=== PATIENT | female | born 1975 | race African-American/Black ===

== ENCOUNTER → 2016-10-20 | Outpatient (CLI) | payer OTHER ==
[2016-10-20 11:56] LABS: ABSOLUTE EOSINOPHILS # (AUTO) 0.1 10^3/uL (0.0-0.6); ABSOLUTE LYMPHOCYTES (AUTO) 1.9 10^3/uL (0.5-4.7); ABSOLUTE MONOCYTES (AUTO) 0.4 10^3/uL (0.1-1.4); ABSOLUTE NEUT (AUTO) 2.2 10^3/uL (1.7-8.2); BASOPHILS % (AUTO) 0.4 % (0-2); EOSINOPHILS % (AUTO) 2.9 % (0-6); HEMATOCRIT 42.6 % (36.0-47.0); HEMOGLOBIN 14.7 g/dL (12.0-15.5); HGB HCT DIFFERENCE 1.5; LYMPHOCYTES % (AUTO) 40.3 % (13-45); MEAN CORPUSCULAR HEMOGLOBIN 29.8 pg (27.0-33.4); MEAN CORPUSCULAR HGB CONC 34.5 g/dL (32.0-36.0); MEAN CORPUSCULAR VOLUME 86 fl (80-97); MONOCYTES % (AUTO) 8.4 % (3-13); RED BLOOD COUNT 4.93 10^6/uL (3.72-5.28); RED CELL DISTRIBUTION WIDTH 13.4 % (11.5-14.0); WHITE BLOOD COUNT 4.7 10^3/uL (4.0-10.5)
[2016-10-20 12:25] LABS: ALANINE AMINOTRANSFERASE 20 U/L (9-52); ALBUMIN 3.6 g/dL (3.5-5.0); ALKALINE PHOSPHATASE 60 U/L (38-126); ANION GAP 11 (5-19); ASPARTATE AMINO TRANSFERASE 18 U/L (14-36); BILIRUBIN,DIRECT 0.3 mg/dL (0.0-0.4); BILIRUBIN,TOTAL 0.5 mg/dL (0.2-1.3); BLOOD UREA NITROGEN 10 mg/dL (7-20); C-REACTIVE PROTEIN 10.3 mg/L (<10.0); CALCIUM 9.3 mg/dL (8.4-10.2); CARBON DIOXIDE 22 mmol/L (22-30); CHLORIDE 108 mmol/L (98-107); GLUCOSE 75 mg/dL (75-110); POTASSIUM 4.6 mmol/L (3.6-5.0); SODIUM 140.9 mmol/L (137-145); TOTAL PROTEIN 7.2 g/dL (6.3-8.2)
== END ==
LOC: OD 10:53
PROVIDERS: ATTEND Physician Assistant
DX: M17.12 Unilateral primary osteoarthritis, left knee (principal); M25.50 Pain in unspecified joint; R60.9 Edema, unspecified
CPT/HCPCS: 36415; 80053; 84550; 85025; 85652; 86038; 86140; 86430

== ENCOUNTER 2018-06-22 09:35 | Emergency (ER) | payer OTHER ==
[2018-06-22] MEDS ORDERED: ACETAMINOPHEN 325 MG TABLET PO ONE (09:55)
--- NOTE | 2018-06-22 09:57 | ER Document Report ---
ED Medical Screen (RME) - General Chief Complaint: High Blood Pressure Stated Complaint: HEADACHE/NECK PAIN Time Seen by Provider: 06/22/18 09:49 Primary Care Provider: JOSE BRYANT MD [Primary Care Provider] - Follow up as needed Mode of Arrival: Ambulatory Information source: Patient TRAVEL OUTSIDE OF THE [place] IN LAST 30 DAYS: No - HPI Patient complains to provider of: HEADACHE, HTN Notes: 06/22/18 09:55 Patient is here with complaints of elevated blood pressure and headache. Patient states that she went to urgent care for a foot problem and was noted that she had an elevated blood pressure at that time. She made appoint with her primary care doctor which is scheduled for Monday. She does not have a history of hypertension and has not been on antihypertensives in the past. She states that since Monday she has had a bad headache behind her right eye. The headache seems to be getting worse. She has occasional blurred vision in the eye. She denies any unilateral numbness, tingling, weakness. No chest pain or shortness of breath. No nausea, vomiting, diarrhea. No head injury. No blood thinners. She takes control pills, no other medications. Exam Patient appears uncomfortable, no distress, nontoxic. Nonfocal neurological exam. Mild tachycardia. Lung sounds normal. Plan CBC, CMP, urinalysis, EKG, chest x-ray, head CT, Tylenol. An initial examination was made on the patient as part of the triage process, and it was determined a more comprehensive evaluation was necessary. Initial labs were ordered and patient was transferred to another provider in the ED who assumed care and finished evaluation and plan. - Related Data Allergies/Adverse Reactions: No Known Allergies Allergy (Verified 06/04/14 11:42) Past Medical History - Social History Frequency of alcohol use: None Drug Abuse: None - Past Medical History Cardiac Medical History: Pulmonary Medical History: Neurological Medical History: Renal/ Medical History: Reports: Hx Ovarian Cysts. Denies: Hx Peritoneal Dialysis, Hx Pelvic Inflammatory Disease Malignancy Medical History: Denies: Hx Breast Cancer, Hx Cervical Cancer, Hx Ovarian Cancer GI Medical History: Musculoskeltal Medical History: Infectious Medical History: Denies: Hx HIV Past Surgical History: Reports: Hx Section - x3, Hx Orthopedic Surgery - right knee - Immunizations Hx Diphtheria, Pertussis, Tetanus Vaccination: Yes - 06/09/14 Physical Exam - Vital signs Vitals: Temp Pulse Resp BP Pulse Ox 98.7 F 119 H 18 182/100 H 99 06/22/18 09:46 06/22/18 09:46 06/22/18 09:46 06/22/18 09:46 06/22/18 09:46 Course - Vital Signs Vital signs: Temp Pulse Resp BP Pulse Ox 98.7 F 119 H 18 182/100 H 99 06/22/18 09:46 06/22/18 09:46 06/22/18 09:46 06/22/18 09:46 06/22/18 09:46 Doctor's Discharge - Discharge Referrals: JOSE BRYANT MD [Primary Care Provider] - Follow up as needed
--- NOTE | 2018-06-22 10:44 | RADIOLOGY REPORT (SQ) ---
EXAM DESCRIPTION: CT HEAD WITHOUT COMPLETED DATE/TIME: 06/22/2018 10:29 am REASON FOR STUDY: HEADACHE, HTN COMPARISON: None. TECHNIQUE: Axial images acquired through the brain without intravenous contrast. Images reviewed wi th bone, brain and subdural windows. Additional sagittal and coronal reconstructions were generated. Images stored on PACS. All CT scanners at this facility use dose modulation, iterative reconstruction, and/or weight based d osing when appropriate to reduce radiation dose to as low as reasonably achievable (ALARA). [facility]: Dose Right [facility]: CareDose [facility]: Dose Right [facility]: Teradose 4D [facility]: Smart [employer] RADIATION DOSE: CT Rad equipment meets quality standard of care and radiation dose reduction techniq ues were employed. CTDIvol: 53.2 mGy. DLP: 1097 mGy-cm. mGy. LIMITATIONS: None. FINDINGS: VENTRICLES: Normal size and contour. CEREBRUM: No masses. No hemorrhage. No midline shift. No evidence for acute infarction. Normal gra y/white matter differentiation. No areas of low density in the white matter. CEREBELLUM: No masses. No hemorrhage. No alteration of density. No evidence for acute infarction. EXTRAAXIAL SPACES: No fluid collections. No masses. ORBITS AND GLOBE: No intra- or extraconal masses. Normal contour of globe without masses. CALVARIUM: No fracture. PARANASAL SINUSES: There is opacification of several of the ethmoid air cells on the right more than left. Mucoperiosteal changes are present in the right frontal sinus. SOFT TISSUES: No mass or hematoma. OTHER: No other significant finding. IMPRESSION: Sinus disease. No acute intracranial imaging finding. EVIDENCE OF ACUTE STROKE: NO. COMMENT: Quality ID # [id number]: Final reports with documentation of one or more dose reduction techniques (e.g., Automated exposure control, adjustment of the mA and/or kV according to patient size, use of iterative reconstruction technique) TECHNICAL DOCUMENTATION: JOB ID: [id number] [employer]- All Rights Reserved Reading location - IP/workstation name: [email or web address]
--- NOTE | 2018-06-22 10:56 | RADIOLOGY REPORT (SQ) ---
EXAM DESCRIPTION: CHEST SINGLE VIEW COMPLETED DATE/TIME: 06/22/2018 10:47 am REASON FOR STUDY: HEADACHE, HTN COMPARISON: None. EXAM PARAMETERS: NUMBER OF VIEWS: One view. TECHNIQUE: Single frontal radiographic view of the chest acquired. RADIATION DOSE: NA LIMITATIONS: None. FINDINGS: LUNGS AND PLEURA: No opacities, masses or pneumothorax. No pleural effusion. MEDIASTINUM AND HILAR STRUCTURES: No masses. Contour normal. HEART AND VASCULAR STRUCTURES: Heart normal in size. Normal vasculature. BONES: No acute findings. HARDWARE: None in the chest. OTHER: No other significant finding. IMPRESSION: No acute abnormality of the lungs in frontal projection. TECHNICAL DOCUMENTATION: JOB ID: [id number] [employer]- All Rights Reserved Reading location - IP/workstation name: [email or web address]
[2018-06-22 11:08] LABS: ABSOLUTE EOSINOPHILS # (AUTO) 0.1 10^3/uL (0.0-0.6); ABSOLUTE LYMPHOCYTES (AUTO) 1.8 10^3/uL (0.5-4.7); ABSOLUTE MONOCYTES (AUTO) 0.5 10^3/uL (0.1-1.4); ABSOLUTE NEUT (AUTO) 3.5 10^3/uL (1.7-8.2); BASOPHILS % (AUTO) 0.3 % (0-2); EOSINOPHILS % (AUTO) 1.2 % (0-6); HEMATOCRIT 45.5 % (36.0-47.0); HEMOGLOBIN 15.3 g/dL (12.0-15.5); LYMPHOCYTES % (AUTO) 30.1 % (13-45); MEAN CORPUSCULAR HEMOGLOBIN 28.9 pg (27.0-33.4); MEAN CORPUSCULAR HGB CONC 33.7 g/dL (32.0-36.0); MEAN CORPUSCULAR VOLUME 86 fl (80-97); MONOCYTES % (AUTO) 8.9 % (3-13); PLATELET COUNT 305 10^3/uL (150-450); SEGMENTED NEUTROPHILS % (AUTO) 59.5 % (42-78); TOTAL CELLS COUNTED % (AUTO) 100 %; WHITE BLOOD COUNT 5.8 10^3/uL (4.0-10.5)
[2018-06-22 11:23] LABS: ALANINE AMINOTRANSFERASE 28 U/L (9-52); ALBUMIN 3.8 g/dL (3.5-5.0); ALKALINE PHOSPHATASE 60 U/L (38-126); ANION GAP 9 (5-19); ASPARTATE AMINO TRANSFERASE 23 U/L (14-36); BILIRUBIN,DIRECT 0.2 mg/dL (0.0-0.4); BILIRUBIN,TOTAL 0.5 mg/dL (0.2-1.3); BLOOD UREA NITROGEN 8 mg/dL (7-20); CALCIUM 9.3 mg/dL (8.4-10.2); CARBON DIOXIDE 23 mmol/L (22-30); CHLORIDE 108 mmol/L (98-107); GLUCOSE 91 mg/dL (75-110); POTASSIUM 4.1 mmol/L (3.6-5.0); SODIUM 140.1 mmol/L (137-145); TOTAL PROTEIN 7.4 g/dL (6.3-8.2)
[2018-06-22] MEDS ORDERED: METOCLOPRAMIDE HCL INJ/PF 10 MG/2 ML SDV IV ONE (11:38)
[2018-06-22] MEDS ORDERED: KETOROLAC TROMETHAMINE INJ/PF 30 MG/1 ML SDV IV ONE (11:38)
[2018-06-22] MEDS ORDERED: DIPHENHYDRAMINE HCL 50 MG/ML VIAL IV ONE (11:39)
[2018-06-22 11:45] LABS: APPEARANCE,URINE SLIGHTLY-CLOUDY; BILIRUBIN,URINE NEGATIVE (NEGATIVE); COLOR,URINE YELLOW; GLUCOSE, URINE NEGATIVE (NEGATIVE); KETONES,URINE NEGATIVE (NEGATIVE); LEUKOCYTE ESTERASE,URINE TRACE (NEGATIVE); NITRITE,URINE NEGATIVE (NEGATIVE); PROTEIN,URINE NEGATIVE (NEGATIVE); URINE SPECIFIC GRAVITY 1.013; UROBILINOGEN,URINE NEGATIVE mg/dL (<2.0)
--- NOTE | 2018-06-22 11:45 | ER Document Report ---
ED General - General Chief Complaint: High Blood Pressure Stated Complaint: HEADACHE/NECK PAIN Time Seen by Provider: 06/22/18 09:49 Primary Care Provider: JOSE BRYANT MD [ASSOCIATE] - Follow up as needed Mode of Arrival: Ambulatory Notes: 43-year-old female here with complaints of elevated blood pressure and headache. Patient states that she went to urgent care for a foot problem and was noted that she had an elevated blood pressure at that time. She made appoint with her primary care doctor which is scheduled for Monday. She does not have a history of hypertension and has not been on antihypertensives in the past. She states that since Monday she has had a bad headache behind her right eye. The headache seems to be getting worse. She has occasional blurred vision in the eye. She denies any unilateral numbness, tingling, weakness. No chest pain or shortness of breath. No nausea, vomiting, diarrhea. No head injury. No blood thinners. She takes control pills, no other medications. TRAVEL OUTSIDE OF THE [place] IN LAST 30 DAYS: No - Related Data Allergies/Adverse Reactions: No Known Allergies Allergy (Verified 06/04/14 11:42) Past Medical History - General Information source: Patient - Social History Smoking Status: Never Smoker Frequency of alcohol use: None Drug Abuse: None Family History: None Patient has suicidal ideation: No Patient has homicidal ideation: No - Past Medical History Cardiac Medical History: Pulmonary Medical History: Neurological Medical History: Renal/ Medical History: Reports: Hx Ovarian Cysts. Denies: Hx Peritoneal Dialysis, Hx Pelvic Inflammatory Disease Malignancy Medical History: Denies: Hx Breast Cancer, Hx Cervical Cancer, Hx Ovarian Cancer GI Medical History: Musculoskeletal Medical History: Infectious Medical History: Denies: Hx HIV Past Surgical History: Reports: Hx Section - x3, Hx Orthopedic Surgery - right knee - Immunizations Hx Diphtheria, Pertussis, Tetanus Vaccination: Yes - 06/09/14 Review of Systems - Review of Systems Constitutional: See HPI EENT: See HPI Cardiovascular: See HPI Respiratory: See HPI Gastrointestinal: See HPI Genitourinary: See HPI Female Genitourinary: No symptoms reported Musculoskeletal: No symptoms reported Skin: No symptoms reported Hematologic/Lymphatic: No symptoms reported Neurological/Psychological: No symptoms reported Physical Exam - Vital signs Vitals: Temp Pulse Resp BP Pulse Ox 98.7 F 119 H 18 182/100 H 99 06/22/18 09:46 06/22/18 09:46 06/22/18 09:46 06/22/18 09:46 06/22/18 09:46 - Notes Notes: PHYSICAL EXAMINATION: Reviewed vital signs and charting by RN GENERAL: Alert, interacts well. No acute distress. HEAD: Normocephalic, atraumatic. EYES: Pupils equal and round. Extraocular movements intact. ENT: Oral mucosa moist, tongue midline. NECK: Full range of motion. Supple. Trachea midline. LUNGS: Clear to auscultation bilaterally, no wheezes, rales, or rhonchi. No respiratory distress. HEART: Regular rate and rhythm. No murmur ABDOMEN: soft, non-tender. Non-distended. Bowel sounds present. no McBurney's point tenderness, no Sidhu sign. EXTREMITIES: Moves all 4 extremities spontaneously. No edema, No cyanosis. Normal distal neurovascular exam BACK: No CVAT NEUROLOGIC: Oriented and appropriate. Normal speech. No focal neuro deficits. PSYCH: Normal affect, normal mood. SKIN: Warm, dry, normal turgor. No rashes or lesions noted. Course - Re-evaluation Re-evalutation: 06/22/18 11:41 Overall well-appearing. Patient with complaint of severe headache. CT head complete and no evidence of ischemia or intracranial bleed. Patient's neck pain is upper trapezius. Patient denies acute shortness of breath, is not tachycardic. I believe she is low risk for pulmonary embolism based on Wells criteria for PE. Blood work all unremarkable, although patient's creatinine is 1.18. Patient will be given a migraine cocktail. 06/22/18 13:38 Patient reports feeling much better after the migraine cocktail. Her headache is rated as mild to moderate. Her blood pressure came down is now 139/85. Patient initially open her eyes and said she felt a "pulling" but her eyes quickly adjusted to light and she is no longer photophobic. Discussed with patient the need to follow-up with her primary care provider. She agreed strict return precautions given. 06/22/18 13:41 - Vital Signs Vital signs: Temp Pulse Resp BP Pulse Ox 98.7 F 119 H 26 H 139/85 H 97 06/22/18 09:46 06/22/18 09:46 06/22/18 13:01 06/22/18 13:01 06/22/18 13:01 - Laboratory Result Diagrams: 06/22/18 10:53 06/22/18 10:53 Laboratory results interpreted by me: 06/22/18 06/22/18 06/22/18 10:53 10:53 11:10 RBC 5.30 H Chloride 108 H Est GFR (Non-Af Amer) 50 L Urine Blood LARGE H Ur Leukocyte Esterase TRACE H Discharge - Discharge Clinical Impression: Headache Qualifiers: Headache type: unspecified Headache chronicity pattern: acute headache Intractability: not intractable Qualified Code(s): R51 - Headache High blood pressure Qualifiers: Hypertension type: unspecified Qualified Code(s): I10 - Essential (primary) hypertension Disposition: HOME, SELF-CARE Additional Instructions: You have been seen in the Emergency Department (ED) for a headache. Please use Tylenol (acetaminophen) or Motrin (ibuprofen) as needed for symptoms, but only as written on the box. Also, you can take the Reglan, Benadryl, and Motrin combo that we talked about if you start developing headaches like this again. Also, you can take Afrin for up to 3 days to help with the sinus pressure and/or Sudafed. As we have discussed, please follow up with your primary care doctor as soon as possible regarding today's ED visit and your headache symptoms. Call your doctor or return to the ED if you have a worsening headache, sudden and severe headache, confusion, slurred speech, facial droop, weakness or numbness in any arm or leg, extreme fatigue, or other symptoms that concern you. Prescriptions: Metoclopramide HCl [Reglan 10 mg Tablet] 1 tab PO Q6H PRN #25 tablet PRN Reason: Referrals: JOSE BRYANT MD [ASSOCIATE] - Follow up as needed
[2018-06-22 13:59] VITALS: BP 139/85
--- NOTE | 2018-06-22 18:51 | EKG REPORT ---
SEVERITY:- BORDERLINE ECG - SINUS RHYTHM BORDERLINE T ABNORMALITIES, INFERIOR LEADS : Confirmed by: Ganesh Lai 22-Jun-2018 18:50:49
== END 2018-06-22 13:59 | disposition home or self-care (01) ==
LOC: ER 09:35
DX: R51 Headache (principal); I10 Essential (primary) hypertension; M54.2 Cervicalgia
CPT/HCPCS: 93005; 99284; 96374; 96375; 36415; 85025; 80053; 81001; 71045; 70450; 93010; J1200; J1885; J2765

== ENCOUNTER 2018-10-17 06:54 | Day surgery (SDC) | payer OTHER ==
[~2018-10-17 06:54] MED LIST: CEFAZOLIN 1 GM/D5W RTU 1 GM/50 ML RTUPB IV ONE; DIPHENHYDRAMINE HCL 50 MG/ML VIAL ONE; FENTANYL CITRATE INJ/PF 100 MCG/2 ML AMPUL ONE; KETOROLAC TROMETHAMINE 60 MG/2 ML SDV ONE; LIDOCAINE 2% INJ-PF (20 MG/ML) 10 ML AMPUL ONE; MIDAZOLAM 2 MG/2 ML INJ ONE; PROPOFOL INJ 200 MG/20 ML VIAL IV ONE
[2018-10-17] MEDS ORDERED: POLYMYXIN B SULFATE INJ 500000 UNIT VIAL ONE (07:36)
[2018-10-17] MEDS ORDERED: BUPIVACAINE HCL 0.5 % INJ/PF 30 ML SDV ONE (07:37)
[2018-10-17] MEDS ORDERED: NORMAL SALINE INJ/PF 0.9% 10 ML SDV ONE (07:37)
[2018-10-17] MEDS ORDERED: LIDOCAINE 2% INJ (20 MG/ML) 20 ML MDV ONE (07:37)
[2018-10-17] MEDS ORDERED: BACITRACIN INJ 50,000 UNIT VIAL ONE (07:37)
[2018-10-17] MEDS ORDERED: DEXAMETHASONE SOD PHOS INJ 10 MG/1 ML VIAL ONE (08:39)
[2018-10-17] MEDS: DEXAMETHASONE SOD PHOSPHATE INJ 4 MG/1 ML VIAL ONE ×2 (08:57)
--- NOTE | 2018-10-17 09:17 | RADIOLOGY REPORT (SQ) ---
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 FLUOROSCOPY TIME: 0.05 seconds Spot images saved to PACS. TECHNIQUE: Intra-operative images acquired during surgical procedure to evaluate progress. NUMBER OF IMAGES: 4 LIMITATIONS: None. FINDINGS: Fluoroscopy was provided for intraoperative procedure. Please refer to the operative repo rt further discussion. IMPRESSION: IMAGE(S) OBTAINED DURING PROCEDURE. COMMENT: Quality ID [id number]: Final reports for procedures using fluoroscopy that document radiation exp osure indices, or exposure time and number of fluorographic images (if radiation exposure indices are not available) Please consult full operative report of the attending physician for description of the procedure. TECHNICAL DOCUMENTATION: JOB ID: [id number] [employer]- All Rights Reserved Reading location - IP/workstation name: [email or web address]
--- NOTE | 2018-10-17 09:17 | RADIOLOGY REPORT (SQ) ---
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 FLUOROSCOPY TIME: 0.05 seconds Spot images saved to PACS. TECHNIQUE: Intra-operative images acquired during surgical procedure to evaluate progress. NUMBER OF IMAGES: 4 LIMITATIONS: None. FINDINGS: Fluoroscopy was provided for intraoperative procedure. Please refer to the operative repo rt further discussion. IMPRESSION: IMAGE(S) OBTAINED DURING PROCEDURE. COMMENT: Quality ID [id number]: Final reports for procedures using fluoroscopy that document radiation exp osure indices, or exposure time and number of fluorographic images (if radiation exposure indices are not available) Please consult full operative report of the attending physician for description of the procedure. TECHNICAL DOCUMENTATION: JOB ID: [id number] [employer]- All Rights Reserved Reading location - IP/workstation name: [email or web address]
--- NOTE | 2018-10-17 09:22 | Operative Report ---
Operative Report DATE OF SURGERY: 10/17/18 PREOPERATIVE DIAGNOSIS: Exostosis dorsum of the right midfoot. POSTOPERATIVE DIAGNOSIS: Same. OPERATION: Excision of exostosis dorsum of the right foot first metatarsal cuneiform joint. SURGEON: MIKAYLA DICKINSON 1ST PLANNING TECHNICIAN: AQUILES CASAREZ ANESTHESIA: LMAC COMPLICATIONS: None. ESTIMATED BLOOD LOSS: Less than 0.5 mL INTRAOPERATIVE FINDINGS: Hypertrophied bone first metatarsal cuneiform joint right. PROCEDURE: On 10/09/2018 patient was administered care with complaint of a painful right foot. Patient was taken the operating room where following induction of intravenous sedation regional local anesthesia the patient's right foot and leg were prepped and draped in usual sterile manner. Utilizing hand-held Doppler at the dorsalis pedis artery was identified and marked and was noted to be just lateral to the exostosis. At that time Esmarch was applied tourniquet was inflated level of 250 mmHg for hemostasis, Esmarch was removed sterile drapiung was completed and following procedure informed: Attention was directed to the dorsal aspect the patient's right midfoot where there is noted be exostosis overlying the first metatarsal cuneiform joint. Incision was made just medial to the hypertrophied bone and avoiding the previously marked dorsalis pedis artery. This was a deepend to the subcutaneous tissue and superficial fascia with blunt dissection down to the level of the exostosis. Incision was made into the capsular and periosteal structures which were freed from their osseous attachments and retracted medially and laterally preservation. At that time utilizing a handheld osteotome the hypertrophied bone was then osteotomized and removed from the wound in toto. At that time utilizing a power rasp all sharp osseous edges were then rasped smooth. There was palpated and was felt the reduction was adequate at this time. Postop x-ray was obtained with the C arm. Is felt on x-ray adequate reduction of the bone had been obtained. At the time of the wound was then flushed with copious amounts of sterile antibiotic solution inspected for any remaining soft tissue or osseous debris. At that time the capsular and periosteal structures were then coaptated and maintained with simple interrupted suture of 3-0 Vicryl. At that time the superficial fascia was then coaptated and maintained with simple interrupted suture of 4-0 Vicryl. At that time the skin incision was then coaptated and maintained with running subcuticular suture of 5-0 Vicryl. At that time the foot was cleansed of ChloraPrep with alcohol solution, Steri-Strips were applied to the incision and 1 cc of 4 mg Decadron was then injected into the blaine-surgical area. A sterile dressing consisting of a singh silk, 4 x 4's, conform, Kerlix and Coban was applied to the right foot. The tourniquet was rapidly deflated, capillary filling time was noted instantaneous to all digits. The patient tolerated the surgery and anesthesia well and was then taken to recovery room to be further monitored by the anesthesia department.
== END 2018-10-17 10:15 | disposition home or self-care (01) ==
LOC: SC 06:54
PROVIDERS: ATTEND Preventive Medicine Undersea and Hyperbaric Medicine
DX: M89.371 Hypertrophy of bone, right ankle and foot (principal); M19.271 Secondary osteoarthritis, right ankle and foot; M79.671 Pain in right foot; E66.9 Obesity, unspecified
CPT/HCPCS: 73620; 01480; 28111; J2250; J3490 ×6; J0690; J1100; J1200; J1885; J3010; J2704